=== PATIENT | female | born 2005 | race Caucasian/White ===

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

== ENCOUNTER 2025-01-25 16:33 | Emergency (ER) | payer OTHER ==
[~2025-01-25] VITALS: Ht 167.6 cm; Wt 59.0 kg
[~2025-01-25 16:33] MED LIST changes: +ENSKYCE 28 TAB1 EACH PO; +Prednisone20 MG PO
[2025-01-25 16:40] VITALS: BP 160/94
[2025-01-25] MEDS ORDERED: RALT400 PO (17:31)
[2025-01-25] MEDS ORDERED: TRUVADA 200 MG1 EACH PO (17:31)
[2025-01-26 16:58] LABS: HEPATITIS B SURFACE ANTIBODY <3.10 IU/L; HEPATITIS BE ANTIBODY Negative (Negative); HEPATITIS BE ANTIGEN Negative (Negative)
[2025-01-27 10:22] LABS: HIV 1,2 COMBO ANTIGEN/ANTIBODY Negative (Negative)
== END 2025-01-25 17:41 | disposition home or self-care (01) ==
LOC: ER 16:33
PROVIDERS: Student in an Organized Health Care Education/Training Program
DX: T14.8XXA Other injury of unspecified body region, initial encounter (principal); Z77.21 Contact with and (suspected) exposure to potentially hazardous body fluids; Z88.0 Allergy status to penicillin; Z79.3 Long term (current) use of hormonal contraceptives; Z59.89 Other problems related to housing and economic circumstances; W46.1XXA Contact with contaminated hypodermic needle, initial encounter
CPT/HCPCS: 86707; 87340; 87350; 87389; 99282